=== PATIENT | male | born 1945 | race Caucasian/White ===

== ENCOUNTER 2016-12-15 13:00 | Emergency (ER) | payer MEDICARE, MEDICAID ==
[~2016-12-15] VITALS: Ht 170.2 cm; Wt 55.0 kg
[2016-12-15 13:02] VITALS: BP 124/57
[2016-12-15] MEDS ORDERED: BACITRACIN ZINC OINT 500U/GM, 0.9 GM ONE (15:35)
== END 2016-12-15 16:26 | disposition left against medical advice (07) ==
LOC: ED 15:23
DX: Z76.0 Encounter for issue of repeat prescription (principal); M79.605 Pain in left leg
CPT/HCPCS: 99283

== ENCOUNTER 2017-01-18 19:59 | Emergency (ER) | payer MEDICARE, MEDICAID | END 2017-01-18 20:47 | LOC: ED 20:41 | DX: Z76.0 Encounter for issue of repeat prescription (principal) | CPT/HCPCS: 99281 ==

== ENCOUNTER 2017-05-14 12:22 | Emergency (ER) | payer MEDICARE, MEDICAID ==
[~2017-05-14] VITALS: Ht 172.7 cm; Wt 55.0 kg
[2017-05-14 12:26] VITALS: BP 103/58
[2017-05-14] MEDS ORDERED: CEPH-367 PO (12:47)
[2017-05-14] MEDS ORDERED: QUET100T4 PO (12:47)
[2017-05-14] MEDS ORDERED: ALBU0.63 NEB (12:47)
[2017-05-14] MEDS ORDERED: TIOT18CA INH (12:47)
[2017-05-14] MEDS ORDERED: DIVA250T14 PO (12:47)
[2017-05-14 13:24] LABS: ASPARTATE AMINO TRANSFERASE 12 U/L (15-37); BLOOD UREA NITROGEN 25 mg/dL (7-18)
[2017-05-14 13:28] LABS: HEMATOCRIT 36.6 % (39.2-51.8); HEMOGLOBIN 12.2 g/dL (13.7-18.0); WHITE BLOOD COUNT 5.5 x10^3/uL (3.4-10)
[2017-05-14] MEDS ORDERED: BACITRACIN ZINC OINT 500U/GM, 0.9 GM ONE (13:42)
== END 2017-05-14 14:09 | disposition home or self-care (01) ==
LOC: ED 13:26
DX: S51.811A Laceration without foreign body of right forearm, initial encounter (principal); S41.111A Laceration without foreign body of right upper arm, initial encounter; S81.812A Laceration without foreign body, left lower leg, initial encounter; F41.1 Generalized anxiety disorder; D64.9 Anemia, unspecified; F20.9 Schizophrenia, unspecified; J44.9 Chronic obstructive pulmonary disease, unspecified; F03.91 Unspecified dementia, unspecified severity, with behavioral disturbance; Z86.73 Personal history of transient ischemic attack (TIA), and cerebral infarction without residual deficits; X58.XXXA Exposure to other specified factors, initial encounter; Y93.89 Activity, other specified; Y92.89 Other specified places as the place of occurrence of the external cause; Y99.8 Other external cause status
CPT/HCPCS: 36415; 80053; 85025; 99284

== ENCOUNTER 2017-07-04 12:14 | Emergency (ER) | payer MEDICAID, MEDICARE ==
[~2017-07-04] VITALS: Ht 172.7 cm; Wt 58.0 kg
[~2017-07-04 12:14] MED LIST: ALBU0.63 NEB; CEPH-367 PO; DIVA250T14 PO; QUET100T4 PO; TIOT18CA INH
[2017-07-04 12:34] VITALS: BP 131/102
[2017-07-04] MEDS ORDERED: SODIUM CHLORIDE FLUSH 10ML SYR IVF ONE (13:00)
[2017-07-04 13:10] LABS: HEMATOCRIT 42.2 % (39.2-51.8); HEMOGLOBIN 14.5 g/dL (13.7-18.0); WHITE BLOOD COUNT 5.6 x10^3/uL (3.4-10)
[2017-07-04 13:21] LABS: ASPARTATE AMINO TRANSFERASE 13 U/L (15-37); BLOOD UREA NITROGEN 24 mg/dL (7-18)
[2017-07-04] MEDS ORDERED: LORazepam 2 MG/ML, 1ML IVPush ONE (13:30)
== END 2017-07-04 14:46 | disposition home or self-care (01) ==
LOC: ED 13:53
DX: L03.116 Cellulitis of left lower limb (principal); J44.9 Chronic obstructive pulmonary disease, unspecified
CPT/HCPCS: 36415; 80053; 83605; 85025; 85610; 85730; 87040; 87070; 87077; 87186; 87205; 99285